=== PATIENT | male | born 1950 | race Caucasian/White ===

== ENCOUNTER 2025-05-06 07:28 | Day surgery (SDC) | payer OTHER, MEDICARE, BC ==
[2025-05-06] VITALS (15 sets, daily range): BP systolic 126–169; BP diastolic 55–95; PULSE 60–86; RESP 14–22; TEMP 98.1; O2SAT 92–99
[~2025-05-06] VITALS: Ht 185.4 cm; Wt 108.4 kg
--- NOTE | 2025-05-06 08:25 | RADIOLOGY REPORT ---
CHEST RADIOGRAPH Indication:pre op heart cath Technique: Frontal and lateral view of the chest was obtained Comparison: None FINDINGS: Lines and Tubes: None Lungs: Clear Pleura: No effusion. No pneumothorax. Cardiomediastinal contours: Unremarkable Bones: Unremarkable IMPRESSION: 1. No evidence of acute disease.
[2025-05-06] MEDS ORDERED: fentaNYL/PF 50MCG/1 ML 2ML syringe ONE (08:48)
[2025-05-06] MEDS ORDERED: LIDOcaine 1% 30ml preserv. free vial ONE (08:48)
[2025-05-06] MEDS ORDERED: iohexol 350 MG/ML 50ML vial IV ONE ×2 (08:48→09:41)
[2025-05-06] MEDS ORDERED: midazolam 1 mg/ML 2ml injection ONE (08:48)
--- NOTE | 2025-05-06 08:57 | ELECTROCARDIOGRAPH REPORT ---
[facility] Test Date: 2025-05-06 Test Time: 08:56:28 Pat Name: DESHAWN LAURENT Department: [facility] Patient ID: [id number] Room: Gender: M [employer] Super[employer]: PANKAJ : 1950 Requested By: SUZANNE VASQUES Order Number: [id number] Reading MD: Dr. ESTEE Bennett Measurements Intervals [place] Rate: 64 P: 68 MT: 157 QRS: 93 QRSD: 109 T: -32 QT: 393 QTc: 406 Interpretive Statements Sinus rhythm Multiform ventricular premature complexes Probable left atrial enlargement Left posterior fascicular block Borderline repolarization abnormality Electronically Signed On 05-06-2025 16:54:[address] ESTEE Bennett Please click the below link to view image of tracing.
[2025-05-06 08:58] LABS: MEAN PLATELET VOLUME 9.4 FL (7.4-10.4); RED CELL DISTRIBUTION WIDTH 14.6 % (11.5-14.5)
[2025-05-06] MEDS ORDERED: CLOP75TA34 PO (08:59)
[2025-05-06] MEDS ORDERED: ALBU18HF2 (08:59)
[2025-05-06] MEDS ORDERED: ATOR20TA66 PO (08:59)
[2025-05-06] MEDS ORDERED: AMLO10TA13 PO (08:59)
[2025-05-06 09:03] LABS: CREATININE 1.14 MG/DL (0.60-1.10); TOTAL CARBON DIOXIDE 30.1 MMOL/L (24-32); eCRCL 65 ML/MIN; eGFR 63 ML/MIN
[2025-05-06 09:05] LABS: APTT 26 SECONDS (22-32); INR 1.0 INR
--- NOTE | 2025-05-06 13:16 | CONSULTATION REPORT ---
Consult Providers to CC ~ History of Present Illness Primary Medical Doctor: Dr. Ilir Ambrose Reason for Admit\Complaint: Abnormal stress test History of Present Illness Mr. Deutsch is a very nice 74-year-old gentleman who had fortunately has a very large inguinal hernia. He was seen by Dr. Rosario for General surgery. He was planned for repair but needed cardiology clearance given multiple risk factors including hypertension age as well as history of tobacco abuse. He was seen by Dr. Rankin to underwent exercise stress testing. This showed significant inferior wall reperfusion. This led to a left heart catheterization today. If this shows severe two-vessel coronary disease including multiple 90% stenoses of the right coronary, an 80% 1st obtuse marginal narrowing as well as occlusion of the distal circumflex which fills via [id number] collateralization. The LAD is only moderately diseased proximally 40%. He has well-preserved left ventricular function without significant valvular abnormalities. We have been asked to see him for possible coronary artery bypass grafting. The patient denies anginal or pleuritic chest pain. He does have a bit of exertional dyspnea but no PND, orthopnea or shortness of breath at rest. No history of intermittent claudication or stroke. Allergies: Coded Allergies: codeine (Verified Allergy, Unknown, 05/06/25) Home Medications Home Medications Active Reported Atorvastatin Calcium 20 Mg Tablet 1 Tab PO DAILY Ventolin Hfa (Albuterol Sulfate) 90 Mcg Hfa.aer.ad Amlodipine Besylate 10 Mg Tablet 1 Tab PO DAILY ROS ROS Generally he denies anorexia or malaise, jaundice, pruritus, fever, chills or weight loss. GI has had no nausea or vomiting, diarrhea, constipation, melena or bright red per rectum. he denies dysuria, pyuria, hematuria, urgency, hesitancy or frequency. Neuromuscular denies frequent or severe headaches. He has had no change in his visual guevara. He denies difficulty with speech, swallowing, ambulation or coordination. Cardiopulmonary is as noted in history of present illness. Exam Vitals: Vital Signs Date Time Temp Pulse Resp B/P (MAP) Pulse Ox O2 Delivery O2 Flow Rate FiO2 05/06/25 08:40 98.1 67 20 135/83 (100) 93 Room Air General: He is a well-developed gentleman who appears to be his stated age. HEENT: Pupils were equal round and reactive to light and accommodation. His head is normocephalic and atraumatic. No facial asymmetry. Neck: Supple with midline trachea. Carotid pulses were 2+ without overlying bruits. He has no JVD lying at 30. No supraclavicular cervical adenopathy. Chest: Slightly increased AP diameter. Lungs were fairly clear with prolonged expiratory phase. No overt wheezing, rales or rhonchi today. Cardiovascular: Regular rate and rhythm without murmur, S3 or S4. No rubs present. Abdomen: Obese but nontender normoactive bowel sounds. No masses or organomegaly noted. Bilateral inguinal hernias which are reducible. Extremities: No cyanosis, clubbing or edema. 2+ radial and posterior tibial pulses bilaterally. Diagnostic Data Last Recorded Lab Results: 05/06/25 0840 05/06/25 0840 Diagnostic Data: Laboratory Tests Test 05/06/25 08:40 Prothrombin Time 10.1 SECONDS (9.0-12.0) INR International Normalized Ratio 1.0 INR Activated Partial Thromboplast Time 26 SECONDS (22-32) Coagulation Comments Additional Plan Mr. Deutsch is a very nice 74-year-old gentleman who has severe two-vessel coronary artery disease. He is in need of a fairly extensive bilateral hernia repair. We have recommended that he undergo coronary bypass grafting for revascularization. The indications alternatives to surgery as well as the risks, benefits and possible complications associated with coronary artery bypass grafting in the setting have been discussed at length with the patient in his . They state that they understand and accept these and requested that we proceed. All of their questions have been answered to their stated satisfaction. We will obtain carotid Dopplers, vein mapping and pulmonary function tests while he is in the hospital today. Surgery to be scheduled for the May. ALTON FRANK III, MD May 06, 2025 13:16
[2025-05-06] MEDS ORDERED: HYDROcodone/acetaminophen 5mg/325mg tablet PO PRN (13:35)
[2025-05-06] MEDS ORDERED: HYDROcodone/acetaminophen 10/325mg tab PO PRN (13:35)
[2025-05-06] MEDS ORDERED: OXAZEpam 15mg capsule PO PRN (13:55)
[2025-05-06] MEDS ORDERED: ondansetron/PF 4mg/2ml inj IV PRN (13:55)
--- NOTE | 2025-05-06 16:19 | VASCULAR REPORT ---
Carotid duplex REASON FOR EXAM: Dizziness TECHNIQUE: Griffith scale, color doppler imaging and spectral analysis were performed. FINDINGS: On griffith scale and color imaging there is spotty plaque in the distal right common carotid artery, the carotid bulb, and the proximal internal external carotid arteries. There is occlusive rhett que beginning at the origin of the left internal carotid artery without antegrade flow distally Velocities are as follows: (measured in cm/S): Right CCA 148 Left CCA 46 Right ICA 94 Left ICA 0 Right ICA/CCA 0.63 Left ICA/CCA 0 Flow in the vertebral arteries is antegrade. IMPRESSION: 1. 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 There is 50-69% stenosis of the internal carotid artery due to plaque
--- NOTE | 2025-05-06 17:50 | VASCULAR REPORT ---
Technique: Real-time ultrasound imaging, with color Doppler and compression of the bilateral great saphenous veins Indication: Preoperative evaluation Comparison: None Findings: Right great saphenous vein measures 2.4-3.3 mm above knee and 2.1-2.5 mm below the knee. The left great saphenous vein measures 3.5- 4.9 cm above the knee and 2.0-3.1 cm above the knee. The re is a small amount of peripheral thrombus within the left great saphenous vein in the calf region. Impression: [ Bilateral great saphenous veins with measurements as above. Small amount of nonocclusive thrombus within the left great saphenous vein in the calf region.
--- NOTE | 2025-05-07 10:10 | CARDIOLOGY REPORT ---
DATE OF SERVICE: 05/06/2025 DICTATING PHYSICIAN: Yariel Ambrose MD LOCATION: [facility], [place], [place]. PROCEDURES: * Left heart catheterization. * Left ventriculography. * Selected left and right coronary arteriography. * Infrarenal aortography with runoff into the right iliac. * Left and right internal mammary angiography. * Right iliofemoral arteriogram, AngioSeal application. * 30 minutes conscious sedation. BRIEF HISTORY/INDICATION: A 74-year-old male plans to have a large suprapubic hernia repair. Had abnormal nuclear stress test of the anterior and inferior segments with angina pectoris, premature ventricular complexes. He was noted to have soft right femoral bruits. He has a remote 100% left internal carotid artery with an old cerebrovascular accident, mild right-sided paresis. Hypertension, dyslipidemia, degenerative joint disease of the spine. Risks, benefits, and alternatives of diagnostic heart catheterization were discussed with him and his and he wants to proceed. She especially wants him to proceed and he wants to fix his hernia. Risks included, not restricted to , stroke, myocardial infarction, renal failure, neurologic or vascular complication, bleeding complications, or allergic reaction. TECHNIQUE: Following usual sterile preparation and draping, the right groin was infiltrated with 10 mL of 1% lidocaine local anesthetic. A 1 mg of Versed and 50 mcg of fentanyl were used for conscious sedation. The patient was maintained on oxygen 2 liters per minute, normal saline at 100 mL per hour. Following single wall puncture technique, J-tip guidewire lead, a 6-Stateless sheath was introduced into the right femoral artery. Selected left and right coronary arteriography in multiple projectional obliquities, right internal mammary and left internal mammary angiographies were performed with 6-Stateless femoral, left 4, right 4 Jose Juan-shaped catheters. Left ventriculography in right anterior oblique projection, infrarenal aortography with runoff into the right iliac was performed in AP projection. Pigtail catheters. Catheter exchanges were under fluoroscopic guidance with J-tip guidewire lead. At termination, right iliofemoral arteriogram was performed. AngioSeal was applied in bottle labeler. Hemostasis was obtained. There were no complications. 170 mL of Omnipaque 350 was administered. Fluoroscopy time was 3.9 minutes. Radiation exposure was 11,525 cGy per cm2. FINDINGS: 6 feet and 1 inch, 239 pounds, 74-year-old male. AO 141/73, LV 141/0-20. LEFT VENTRICULOGRAM: Severe inferobasal hypokinesis. Ejection fraction 50%. Infrarenal aortography with calcification in the right common femoral artery and superficial femoral artery. No high-grade stenoses. There are scattered 20-30% plaques throughout. There is heavy left anterior descending, left circumflex, right coronary artery calcification. Left main coronary calcification with mild narrowings. There is proximal 30%, mid 30% left anterior descending. There was a large intermediate branch arising from the nearly ostial portion of the left circumflex. The large intermediate equal size to the left anterior descending has 70% proximal narrowing. There is 100% mid left circumflex obstruction with [id number] collateralization of an obtuse marginal branch. There was calcific tortuous right coronary with serial multiple 40-50% proximal mid and distal mid narrowings and a focal 85% mid narrowing. Posterior descending reaches the apex. Posterolateral branches of moderate size. Left and right internal mammary arteries were smooth. RESULTS: * Severe inferobasal hypokinesis, ejection fraction of 50%, left ventricular end diastolic pressure 20 mmHg. * Infrarenal aorta with calcification, right common femoral artery, superficial femoral artery calcification, 20% mild plaquing. * Heavy calcification of the left main coronary artery, left anterior descending, left circumflex and right coronary arteries. * 30% proximal, 30% mid left anterior descending narrowing. * 70% large intermediate proximal branch narrowing. * 100% mid left circumflex with [id number] collateralization of the obtuse marginal branch. * Calcific tortuous right coronary multiple 40-50% narrowing mid and distal and focal 85% mid narrowing, posterior descending reaches the apex. * Left internal mammary and right internal mammary are smooth. COMMENT: The patient's vessels are of poor quality for intervention due to calcification and tortuosity. RECOMMENDATIONS: He was recommended to have cardiovascular surgical consultation with respect to revascularization of the intermediate branch right coronary and obtuse marginal prior to consideration of elective surgical procedure. Yariel Ambrose MD TID: [id number] RECEIPT: [id number] TR/SARA/KAREY cc: Bashir Fulton, [facility], Hector Rosario MD(User), Baldemar Mejia MD
--- NOTE | 2025-05-08 14:36 | PROCEDURE NOTE - Respiratory ---
Procedure Note-Respiratory Providers to CC Copies To 1: ALTON FRANK III, MD; SUZANNE VASQUES MD Procedure Name: This is a spirometry study dated May 06, 2025. Spirometry measurements: There is severe reduction in both the forced vital capacity and the FEV1. The FEV1 ratio is quite low. All of the measured flow rates are very poor. Bronchodilator was not administered as part of the study. Conclusion: This study shows severe abnormality. There is evidence for severe obstructive ventilatory defect. This is consistent with the patient's diagnosis of smoking-related COPD. We have no previous studies for comparison. Close pulmonary attention is recommended. REE LUEVANO MD May 08, 2025 14:36
== END 2025-05-06 17:35 | disposition home or self-care (01) ==
LOC: SSTAY O 07:28
PROVIDERS: ATTEND Internal Medicine Cardiovascular Disease
DX: R94.39 Abnormal result of other cardiovascular function study (principal); I49.3 Ventricular premature depolarization; I44.5 Left posterior fascicular block; I25.119 Atherosclerotic heart disease of native coronary artery with unspecified angina pectoris; I10 Essential (primary) hypertension; J44.9 Chronic obstructive pulmonary disease, unspecified; I25.2 Old myocardial infarction; I42.9 Cardiomyopathy, unspecified
CPT/HCPCS: 36415; 71046; 80048; 85025; 85610; 85730; 93005; 93458; 93567; 93880; 93970; 94760; 99152; 99153; C1760; J1644; J2003; J2250; J3010; J7030; Q9967; A4615; A6258